=== PATIENT | male | born 2000 | race Caucasian/White ===

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

== ENCOUNTER 2022-09-04 14:05 | Emergency (ER) | payer BC ==
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
--- NOTE | 2022-09-04 17:06 | RAD REPORT ---
EXAM DESCRIPTION: RAD - Wrist Right 3 View - 09/04/2022 4:07 pm CLINICAL HISTORY: PAIN COMPARISON: No comparisons TECHNIQUE: Right wrist, 3 views. FINDINGS: No fracture is identified. Dorsal subluxation of the ulnar head relative to the carpus and distal radius. There may be slight wi dening of the distal radioulnar syndesmosis, subjective. Mild adjacent soft tissue swelling. No perio steal reaction noted. No foreign body or other soft tissue abnormality. IMPRESSION: Dorsal subluxation of the ulnar head as above. .
[2022-09-04 18:19] VITALS: BP 128/88; TEMP 98.2; O2SAT 99
== END 2022-09-04 17:54 | disposition home or self-care (01) ==
LOC: ER 14:05
DX: S63.501A Unspecified sprain of right wrist, initial encounter (principal)
CPT/HCPCS: 99282

== ENCOUNTER 2023-03-05 00:19 | Emergency (ER) | payer BC ==
[2023-03-05 01:03] LABS: Absolute Lymphocytes (CBC) 2.6 K/uL (0.7-4.9); Lymphocytes % 26.7 % (15.3-44.8); MCV 89.3 fL (80-100); MPV 7.5 fL (7.6-11.3); Platelets 295 thou/uL (152-406); RBC Red Blood Cell Count 5.26 M/uL (4.33-5.43)
[2023-03-05 01:07] LABS: Protime INR 0.92
[2023-03-05] MEDS ORDERED: NA CHLORIDE 0.9% 1,000 ML ONE (01:13)
[2023-03-05 01:25] LABS: ALT/SGPT 47 U/L (16-61); AST/SGOT 39 U/L (15-37); Albumin 3.6 g/dL (3.4-5.0); Alkaline Phosphatase 84 U/L (45-117); BUN Blood Urea Nitrogen 8 mg/dL (7-18); Bicarbonate 27 mEq/L (21-32); Bilirubin Direct < 0.1 mg/dL (0-0.2); Bilirubin Indirect, Calculated ND mg/dL (0.2-0.8); Bilirubin Total 0.3 mg/dL (0.2-1.0); Glomerular Filtration Rate 109 ml/min (=/>90); Glucose Level 130 mg/dL (74-106); Potassium 3.1 mEq/L (3.5-5.1); Protein, Total 7.7 g/dL (6.4-8.2); Sodium Level 139 mEq/L (136-145)
[2023-03-05 01:36] LABS: Specific Gravity 1.019 (1.005-1.030); Urine Bacteria <20 /HPF (<20); Urine Bilirubin NEGATIVE (Negative); Urine Blood Negative (Negative); Urine Clarity Turbid (Clear); Urine Color Light-Yellow (Yellow); Urine Glucose NEGATIVE (Negative); Urine Mucus Slight /HPF (None Seen); Urine Protein TRACE (Negative); Urine RBC <5 /HPF (None Seen); Urine Urobilinogen Normal (Normal); Urine pH 6.5 (5.0-7.0)
[2023-03-05 01:44] LABS: Barbiturates NEGATIVE (NEGATIVE); Benzodiazepines NEGATIVE (NEGATIVE); Cocaine NEGATIVE (NEGATIVE); METHAMPHETAM NEGATIVE (NEGATIVE); Methadone NEGATIVE (NEGATIVE); Opiates NEGATIVE (NEGATIVE); Phencyclidine NEGATIVE (NEGATIVE); THC Cannibis POSITIVE (NEGATIVE)
--- NOTE | 2023-03-05 01:44 | ER ---
Nurse's Notes [facility] Name: Fortino Browne Age: 22 yrs Sex: Male : 2000 Arrival Date: 03/05/2023 Time: 00:19 Bed 18 Private MD: Diagnosis: Suicidal ideation, alcohol intoxication now resolved Presentation: 03/05 00:25 Chief complaint: family friend: "he is drinking for the past 3 weeks, father when rv he was young, a lot of things going on right now and he told me he does not know what to do. last night at 10pm he mentioned that he cannot take this anymore. and asked me today if I can bring him to the hospital.". Coronavirus screen: At this time, the client does not indicate any symptoms associated with coronavirus-19. Ebola Screen: No symptoms or risks identified at this time. Initial Sepsis Screen: Does the patient meet any 2 criteria? No. Patient's initial sepsis screen is negative. Does the patient have a suspected source of infection? No. Patient's initial sepsis screen is negative. Risk Assessment: Do you want to hurt yourself or someone else? Patient reports desire/thoughts of hurting themselves or someone else. Provider notified. Onset of symptoms was March 05, 2023. 00:25 Method Of Arrival: Ambulatory rv 00:25 Acuity: LELE 2 rv Triage Assessment: 00:28 General: Appears comfortable, Behavior is quiet, intoxicated. Pain: Denies pain. Neuro: rv Level of Consciousness is awake, alert, obeys commands, Oriented to person, place. Cardiovascular: Capillary refill < 3 seconds Patient's skin is warm and dry. Respiratory: Airway is patent Respiratory effort is even, unlabored. GI: No signs and/or symptoms were reported involving the gastrointestinal system. : No signs and/or symptoms were reported regarding the genitourinary system. Derm: Skin is intact. Historical: - Allergies: 00:28 Omnicef; rv - PMHx: 00:25 ventricular tachycardia; Anxiety; depression; pf1 - PSHx: 00:28 Tonsillectomy; rv 00:25 cardiac loop recorder; pf1 - Immunization history:: Adult Immunizations up to date. - Social history:: Smoking status: unknown. - Family history:: not pertinent. - Hospitalizations: : No recent hospitalization is reported. Screenin:25 [facility] ED Fall Risk Assessment (Adult) History of falling in the last 3 months, pf1 including since admission No falls in past 3 months (0 pts) Confusion or Disorientation No (0 pts) Intoxicated or Sedated No (0 pts) Impaired Gait No (0 pts) Mobility Assist Device Used No (0 pt) Altered Elimination No (0 pt) Score/Fall Risk Level 0 - 2 = Low Risk Oriented to surroundings, Maintained a safe environment, Educated pt \\T\\ family on fall prevention, incl call for assistance when getting out of bed, Assessed \\T\\ reinforced patient's understanding of fall precautions, Provided non-skid footwear, Hourly rounding (assess needs \\T\\ fall precautionary measures) done, Used ambulatory aids as needed (educated on \\T\\ assisted with), Used gait belt as appropriate. Abuse screen: Denies threats or abuse. Nutritional screening: No deficits noted. Tuberculosis screening: No symptoms or risk factors identified. Assessment: 00:25 General: Appears in no apparent distress. comfortable, well groomed, well developed, pf1 Behavior is calm, cooperative, appropriate for age, quiet. 00:25 Pain: Complains of pain in abdomen Pain currently is 7 out of 10 on a pain scale. pf1 Neuro: No deficits noted. Level of Consciousness is awake, alert, obeys commands, Oriented to person, place, time, situation. Cardiovascular: No deficits noted. Capillary refill < 3 seconds Patient's skin is warm and dry. Respiratory: No deficits noted. Airway is patent Respiratory effort is even, unlabored, Respiratory pattern is regular, symmetrical. GI: Abdomen is flat, non-distended, Reports upper abdominal pain, nausea. : No deficits noted. No signs and/or symptoms were reported regarding the genitourinary system. EENT: No deficits noted. No signs and/or symptoms were reported regarding the EENT system. Derm: No deficits noted. No signs and/or symptoms reported regarding the dermatologic system. 00:25 General: Patient stated has been feeling depressed in the past week with feelings of pf1 suicidal ideations without a plan. Patient stated has been drinking a lot of alcohol tonight and has been drinking more alcohol in the past week since due to his depression of missing his dad that approximately 7 years ago. . 01:23 Reassessment: [id number] KAILEY (FAMILY FRIEND). rv 01:30 Reassessment: Patient appears in no apparent distress at this time. Patient and/or pf1 family updated on plan of care and expected duration. Pain level reassessed. Patient is alert, oriented x 3, equal unlabored respirations, skin warm/dry/pink. suicidal ideations Patient states symptoms have improved. 02:30 Reassessment: Patient appears in no apparent distress at this time. Patient and/or pf1 family updated on plan of care and expected duration. Pain level reassessed. Patient is alert, oriented x 3, equal unlabored respirations, skin warm/dry/pink. suicidal precautions in place Patient states symptoms have improved. 03:30 Reassessment: Patient appears in no apparent distress at this time. Patient and/or pf1 family updated on plan of care and expected duration. Pain level reassessed. Patient is alert, oriented x 3, equal unlabored respirations, skin warm/dry/pink. Patient states symptoms have improved. 04:30 Reassessment: Patient appears in no apparent distress at this time. Patient and/or pf1 family updated on plan of care and expected duration. Pain level reassessed. Patient is alert, oriented x 3, equal unlabored respirations, skin warm/dry/pink. Patient states symptoms have improved. 05:30 Reassessment: Patient appears in no apparent distress at this time. Patient and/or pf1 family updated on plan of care and expected duration. Pain level reassessed. Patient is alert, oriented x 3, equal unlabored respirations, skin warm/dry/pink. Patient states symptoms have improved. 06:23 Reassessment: Patient appears in no apparent distress at this time. Patient and/or pf1 family updated on plan of care and expected duration. Pain level reassessed. Patient is alert, oriented x 3, equal unlabored respirations, skin warm/dry/pink. suicidal precautions in place Patient states symptoms have improved. 09:00 Reassessment: Patient appears in no apparent distress at this time. Patient and/or eh3 family updated on plan of care and expected duration. Pain level reassessed. Patient is alert, oriented x 3, equal unlabored respirations, skin warm/dry/pink. 10:00 Reassessment: Patient appears in no apparent distress at this time. Patient and/or eh3 family updated on plan of care and expected duration. Pain level reassessed. Patient is alert, oriented x 3, equal unlabored respirations, skin warm/dry/pink. 11:00 Reassessment: Patient appears in no apparent distress at this time. Patient and/or 3 family updated on plan of care and expected duration. Pain level reassessed. Patient is alert, oriented x 3, equal unlabored respirations, skin warm/dry/pink. 12:00 Reassessment: Patient appears in no apparent distress at this time. Patient and/or eh3 family updated on plan of care and expected duration. Pain level reassessed. Patient is alert, oriented x 3, equal unlabored respirations, skin warm/dry/pink. 12:40 Reassessment: Discharge Safety Plan completed, see paper chart. [facility] 12:42 Reassessment: Contacted hospital security to bring pt belongings, no answer. Charge 3 nurse notified. Pt remains in room. Psych: 00:25 [place] Suicide Severity Screening: In the past month, have you wished you were pf1 or wished you could go to sleep and not wake up? Patient responds "yes." "In the past month, have you actually had any thoughts of killing yourself?" Patient responds "yes." "In your lifetime, have you ever done anything, started to do anything, or prepared to do anything to end your life?" Patient responds "no.". Subjective: Patient's mood is sad, Having thoughts of suicide. Denies suicidal plan. Objective: Patient is cooperative, Speech is normal, Affect is appropriate. Interventions: Removed personal items and placed in bag. Searched person for dangerous items. Urine collected and sent for urine drug test. Belonging list filled out. patient's personal belongings item sent to [facility] with list of items. Safety Checks: Personal items have been removed. Door is open. Visitors are present. Patient uses marijuana. 12:39 Commitment: pt to be discharged. [facility] Overdose: 00:25 [place] Suicide Severity Screening: "In the past month, have you wished you were pf1 or wished you could go to sleep and not wake up?" Patient responds "yes." Based off client's responses, additional C-SSRS screening questions required. "In the past month, have you actually had any thoughts of killing yourself?" Patient responds "yes." Based off client's responses, additional C-SSRS screening questions required. "In your lifetime, have you ever done anything, started to do anything, or prepared to do anything to end your life?" Patient responds "no.". Vital Signs: 00:25 BP 148 / 93; Pulse 112; Resp 18; Temp 98.8; Pulse Ox 100% ; Weight 74.39 kg; rv 01:25 BP 129 / 87; Pulse 105; Resp 16; Pulse Ox 98% on R/A; pf1 02:30 BP 129 / 83; Pulse 86; Resp 16; Pulse Ox 97% on R/A; pf1 03:30 BP 138 / 87; Pulse 84; Resp 16; Pulse Ox 98% on R/A; Pain 4/10; pf1 04:30 BP 110 / 66; Pulse 87; Resp 16; Pulse Ox 97% on R/A; pf1 06:10 BP 136 / 81; Pulse 85; Resp 16; Pulse Ox 97% on R/A; Pain 0/10; pf1 09:00 BP 142 / 88; Pulse 92; Resp 16; Pulse Ox 98% on R/A; eh3 10:00 BP 145 / 109; Pulse 108; Resp 16; Pulse Ox 100% on R/A; eh3 11:00 BP 148 / 86; Pulse 94; Resp 18; Pulse Ox 99% on R/A; eh3 12:00 BP 124 / 99; Pulse 103; Resp 16; Pulse Ox 99% ; eh3 03:30 Pain Scale: Adult pf1 06:10 Pain Scale: Adult pf1 ED Course: 00:20 Patient arrived in ED. [id number] 00:22 Angel Daniels MD is Attending Physician. kb 00:25 Patient has correct armband on for positive identification. Bed in low position. Call pf1 light in reach. 00:28 Triage completed. rv 00:28 Arm band placed on right wrist. rv 00:45 Inserted saline lock: 20 gauge in right antecubital area, using aseptic technique. pf1 Blood collected. 06:15 No provider procedures requiring assistance completed. pf1 07:40 land lease information clerk contacted [facility] to arrange for a mental health screener to em1 evaluate this pt. 09:26 Tata Agrawal, MARY is Primary Nurse. eh3 12:00 Diet: Patient given a regular meal tray. Tolerated well. eh3 12:27 Attending Physician role handed off by Angel Daniels MD sp3 12:27 Tamiko Herrera MD is Attending Physician. sp3 12:39 Provided Education on: N/A. eh3 12:39 IV discontinued, intact, bleeding controlled, No redness/swelling at site. Pressure eh3 dressing applied. Administered Medications: 01:10 Drug: NS 0.9% IV 1000 ml IV at 1000 ml once Route: IV; Rate: 1000 ml; Site: right pf1 antecubital; 01:41 Follow up: Response: No adverse reaction; Marked relief of symptoms pf1 02:10 Follow up: Response: No adverse reaction; Marked relief of symptoms; IV Status: pf1 Completed infusion; IV Intake: 1000ml 01:40 Drug: Famotidine IVP 20 mg IVP once; dilute with 10 mL 0.9% NaCl; give over 2 minutes pf1 Route: IVP; Site: right antecubital; 02:04 Follow up: Response: No adverse reaction; Marked relief of symptoms; Pain is decreased pf1 01:40 Drug: GI Cocktail without - (Maalox PO 30 ml, Lidocaine Mucous Membrane 2 % 15 pf1 ml) PO once Route: PO; 02:04 Follow up: Response: No adverse reaction; Marked relief of symptoms pf1 02:15 Drug: Potassium Chloride IV 20 mEq IV at calculated rate once; administer over 1-2 pf1 hours Route: IV; Rate: calculated rate; Site: right antecubital; 04:15 Follow up: Response: No adverse reaction; Marked relief of symptoms; IV Status: pf1 Completed infusion 02:47 Drug: Nicotine Transdermal Patch 21 mg/24 hr 1 patches Transdermal once {Note: patch pf1 placed to right shoulder region.} Route: Transdermal; Site: anterior chest wall; 03:40 Follow up: Response: No adverse reaction; Marked relief of symptoms pf1 Medication: 12:39 VIS not applicable for this client. eh3 Intake: 02:10 IV: 1000ml; Total: 1000ml. pf1 Outcome: 01:44 ER care complete, transfer ordered by . rn 12:28 Discharge ordered by . sp3 13:02 Patient left the ED. 3 Signatures: Kristy Mercado, IT SECURITY ENGINEER-C IT SECURITY ENGINEER-Ckb Angel Daniels MD MD rn Martinez, Eric em1 Pedro Jeffers RN RN rv Tamiko Herrera MD MD sp3 Kacie Arshad jj6 Tata Agrawal RN RN 3 Gabby Cooper RN RN pf1 Corrections: (The following items were deleted from the chart) 00:41 00:25 Risk Assessment: Do you want to hurt yourself or someone else? Patient reports no rv desire to harm self or others. rv 06:30 00:28 PMHx: None; rv pf1 06:30 00:25 PSHx: ventricular tachycardia; pf1 pf1 06:30 00:25 PSHx: Tonsillectomy; pf1 pf1
--- NOTE | 2023-03-05 01:44 | EDPHYS ---
Physician Documentation [facility] Name: Fortino Browne Age: 22 yrs Sex: Male : 2000 Arrival Date: 03/05/2023 Time: 00:19 Bed 18 Private MD: ED Physician Tamiko Herrera HPI: 03/05 00:30 This 22 yrs old Male presents to ER via Ambulatory with complaints of ALCOHOL rn INTOXICATION, suicidal ideation. 00:30 The patient presents to the emergency department with suicide ideation. Onset: The rn symptoms/episode began/occurred at an unknown time. Past psychiatric history: the patient has not had a prior suicide gesture, the patient does not have a previous inpatient psychiatric history. Severity of symptoms: At their worst the symptoms were moderate in the emergency department the symptoms are unchanged. The patient has not experienced similar symptoms in the past. The patient has not recently seen a physician. Family friend brings patient in for suicidal ideation. Patient has never attempted self-harm. Denies any overdose. Currently taking antidepressant and anxiety medication. Did not take any extra pills on top of his prescribed dosage. Reports heavy alcohol drinking daily for the last 2 weeks.. Historical: - Allergies: 00:28 Omnicef; rv - PMHx: 00:25 ventricular tachycardia; Anxiety; depression; pf1 - PSHx: 00:28 Tonsillectomy; rv 00:25 cardiac loop recorder; pf1 - Immunization history:: Adult Immunizations up to date. - Social history:: Smoking status: unknown. - Family history:: not pertinent. - Hospitalizations: : No recent hospitalization is reported. ROS: 00:30 Constitutional: Negative for fever, chills, and weight loss, Eyes: Negative for injury, rn pain, redness, and discharge, Neck: Negative for injury, pain, and swelling, Cardiovascular: Negative for chest pain, palpitations, and edema, Respiratory: Negative for shortness of breath, cough, wheezing, and pleuritic chest pain, Abdomen/GI: Negative for abdominal pain, nausea, vomiting, diarrhea, and constipation, Back: Negative for injury and pain, : Negative for injury, bleeding, discharge, and swelling, MS/Extremity: Negative for injury and deformity, Skin: Negative for injury, rash, and discoloration, Neuro: Negative for headache, weakness, numbness, tingling, and seizure, Psych: Positive for depression, anxiety, suicidal ideation Exam: 00:30 Constitutional: This is a well developed, well nourished patient who is somnolent, rn rolled to room in wheelchair, awakens to voice and tactile stimulation. Does appear intoxicated. Head/Face: Normocephalic, atraumatic. Eyes: Pupils equal round and reactive to light, extra-ocular motions intact. ENT: Dry mucous membranes Cardiovascular: Tachycardic, regular. No pulse deficits Respiratory: No increased work of breathing, no retractions or nasal flaring. Abdomen/GI: Soft, nontender MS/ Extremity: Pulses equal, no cyanosis. Neurovascular intact. Full, normal range of motion. Equal circumference. Neuro: Somnolent, awakens to voice, oriented to person place and time. Moves all 4 extremities. No seizure activity. Occasional twitching of muscles of upper extremity 06:48 ECG was reviewed by the Attending Physician. rn Vital Signs: 00:25 BP 148 / 93; Pulse 112; Resp 18; Temp 98.8; Pulse Ox 100% ; Weight 74.39 kg; rv 01:25 BP 129 / 87; Pulse 105; Resp 16; Pulse Ox 98% on R/A; pf1 02:30 BP 129 / 83; Pulse 86; Resp 16; Pulse Ox 97% on R/A; pf1 03:30 BP 138 / 87; Pulse 84; Resp 16; Pulse Ox 98% on R/A; Pain 4/10; pf1 04:30 BP 110 / 66; Pulse 87; Resp 16; Pulse Ox 97% on R/A; pf1 06:10 BP 136 / 81; Pulse 85; Resp 16; Pulse Ox 97% on R/A; Pain 0/10; pf1 09:00 BP 142 / 88; Pulse 92; Resp 16; Pulse Ox 98% on R/A; eh3 10:00 BP 145 / 109; Pulse 108; Resp 16; Pulse Ox 100% on R/A; eh3 11:00 BP 148 / 86; Pulse 94; Resp 18; Pulse Ox 99% on R/A; eh3 12:00 BP 124 / 99; Pulse 103; Resp 16; Pulse Ox 99% ; eh3 03:30 Pain Scale: Adult pf1 06:10 Pain Scale: Adult pf1 MDM: 00:22 Patient medically screened. kb 01:43 Differential diagnosis: depression, suicidal ideations. Data reviewed: vital signs, rn nurses notes, lab test result(s), and as a result, I will admit patient. Consideration of Admission/Observation Patient was admitted/placed on observation. Escalation of care including admission/observation considered. Counseling: I had a detailed discussion with the patient and/or guardian regarding the historical points, exam findings, and any diagnostic results supporting the discharge/admit diagnosis, lab results, the need to transfer to another facility, [facility] does not immediately have the required specialist. 12:27 ED course: After evaluation by [facility] services and alcohol level is down, patient sp3 will be discharged home with outpatient follow-up.. 03/05 00:28 Order name: Acetaminophen; Complete Time: rn 03/05 00:28 Order name: Basic Metabolic Panel; Complete Time: rn 03/05 00:28 Order name: CBC with Diff; Complete Time: rn 03/05 00:28 Order name: ETOH Level; Complete Time: rn 03/05 00:28 Order name: Hepatic Function; Complete Time: rn 03/05 00:28 Order name: PT-INR; Complete Time: rn 03/05 00:28 Order name: Ptt, Activated; Complete Time: rn 03/05 00:28 Order name: Salicylate; Complete Time: rn 03/05 00:28 Order name: Urinalysis w/ reflexes; Complete Time: : rn 03/05 00:28 Order name: Urine Drug Screen; Complete Time: 02:06 rn 03/05 06:42 Order name: ETOH Level: please collect at 0700 ha1 03/05 00:28 Order name: EKG; Complete Time: 00:29 rn 03/05 00:28 Order name: EKG - Nurse/Tech; Complete Time: 00:57 rn 03/05 00:28 Order name: IV Saline Lock; Complete Time: 00:57 rn 03/05 00:28 Order name: Labs collected and sent; Complete Time: 00:57 rn 03/05 00:28 Order name: Suicide Precautions; Complete Time: 00:57 rn 03/05 00:28 Order name: Suicide Screening ([place]); Complete Time: 00:57 rn EC:48 Rate is 108 beats/min. Rhythm is regular. QRS [place] is Normal. GA interval is normal. rn QRS interval is normal. QT interval is normal. No Q waves. T waves are Normal. No ST changes noted. Clinical impression: Sinus tachycardia. Interpreted by me. Reviewed by me. Administered Medications: 01:10 Drug: NS 0.9% IV 1000 ml IV at 1000 ml once Route: IV; Rate: 1000 ml; Site: right pf1 antecubital; 01:41 Follow up: Response: No adverse reaction; Marked relief of symptoms pf1 02:10 Follow up: Response: No adverse reaction; Marked relief of symptoms; IV Status: pf1 Completed infusion; IV Intake: 1000ml 01:40 Drug: Famotidine IVP 20 mg IVP once; dilute with 10 mL 0.9% NaCl; give over 2 minutes pf1 Route: IVP; Site: right antecubital; 02:04 Follow up: Response: No adverse reaction; Marked relief of symptoms; Pain is decreased pf1 01:40 Drug: GI Cocktail without - (Maalox PO 30 ml, Lidocaine Mucous Membrane 2 % 15 pf1 ml) PO once Route: PO; 02:04 Follow up: Response: No adverse reaction; Marked relief of symptoms pf1 02:15 Drug: Potassium Chloride IV 20 mEq IV at calculated rate once; administer over 1-2 pf1 hours Route: IV; Rate: calculated rate; Site: right antecubital; 04:15 Follow up: Response: No adverse reaction; Marked relief of symptoms; IV Status: pf1 Completed infusion 02:47 Drug: Nicotine Transdermal Patch 21 mg/24 hr 1 patches Transdermal once {Note: patch pf1 placed to right shoulder region.} Route: Transdermal; Site: anterior chest wall; 03:40 Follow up: Response: No adverse reaction; Marked relief of symptoms pf1 Disposition Summary: 03/05/23 12:28 Discharge Ordered Notes: Location: Home sp3 Condition: Stable(03/05/23 12:28) sp3 Diagnosis - Suicidal ideation, alcohol intoxication now resolved sp3 Followup: sp3 - With: Private Physician - When: Upon discharge from the Emergency Department - Reason: Continuance of care Discharge Instructions: - Discharge Summary Sheet sp3 - Suicidal Feelings: How to Help Yourself sp3 Forms: - Medication Reconciliation Form sp3 - Thank You Letter sp3 - Antibiotic Education sp3 - Prescription Opioid Use sp3 - Patient Portal Instructions sp3 - Leadership Thank You Letter sp3 Signatures: Dispatcher [employer] EDKristy Braun, RN FAMILY-C RN FAMILY-Ckb Angel Daniels MD MD rn Vicente, Ronaldo RN RN rv Tamiko Herrera MD MD sp3 Tata Agrawal, RN RN eh3 Gabby Cooper RN RN pf1 Corrections: (The following items were deleted from the chart) 06:30 00:28 PMHx: None; rv pf1 06:30 00:25 PSHx: ventricular tachycardia; pf1 pf1 06:30 00:25 PSHx: Tonsillectomy; pf1 pf1 12:28 01:44 rn sp3 12: 01:44 Psych Facility rn sp3 12: 01:44 Higher level of care rn sp3 12: 01:44 Stable rn sp3 12: 01:44 new rn sp3 12: 01:44 have improved rn sp3 12: 01:44 Suicidal ideations rn sp3 12: 01:44 Alcohol abuse with intoxication rn sp3
[2023-03-05] MEDS ORDERED: MAGNES/ALUMIN/SIMET 30ML UCUP ONE (01:48)
[2023-03-05] MEDS ORDERED: FAMOTIDINE 20 MG/2 ML VIAL IV ONE (01:48)
[2023-03-05] MEDS ORDERED: NA CHLORIDE 0.9% 250 ML ONE (02:23)
[2023-03-05] MEDS ORDERED: KCL 20 MEQ/100 mL IVPB 100 ML IV ONE (02:24)
[2023-03-05] MEDS ORDERED: NICOTINE 21 MG/PAT TD ONE (02:58)
[2023-03-05 13:40] VITALS: TEMP 98.8
[2023-03-05 13:51] VITALS: O2SAT 99
[2023-03-05 13:53] VITALS: BP 124/99
--- NOTE | 2023-03-07 16:54 | EKG ---
Test Date: 2023-03-05 Test Time: 00:49:20 Scoring Machine Operator: VIOLET MEASUREMENT RESULTS: Intervals: Rate: 108 PA: 118 QRSD: 86 QT: 342 QTc: 458 Enders: P: 62 PA: 118 QRS: 89 T: 58 INTERPRETIVE STATEMENTS: Sinus tachycardia Otherwise normal ECG No previous ECG available for comparison Electronically Signed On 03-07-23 16:52:05 SPORTS BOOK BOARD ATTENDANT by Harry Saucedo
== END 2023-03-05 13:02 | disposition home or self-care (01) ==
LOC: ER 00:19
DX: R45.851 Suicidal ideations (principal); F32.A Depression, unspecified; Z88.1 Allergy status to other antibiotic agents
CPT/HCPCS: 96365; 96361; 93005; 85025; 81001; 80048; 36415; 85610; 80076; 85730; 80307; 96375; 99285; 96366; 80143; 80179; 82077 ×2; J3480; J7050; J7030